=== PATIENT | male | born 1980 | race Caucasian/White ===

== ENCOUNTER 2022-08-22 13:41 | Emergency (ER) | payer OTHER ==
[~2022-08-22] VITALS: Ht 172.7 cm; Wt 61.2 kg
[2022-08-22 14:27] VITALS: BP_SYST 166
[2022-08-22] MEDS ORDERED: MORPHINE 4 MG INJ. 4 MG/ML VIAL IM ONE (16:45)
[2022-08-22] MEDS ORDERED: IBUPROFEN 800 MG TABLET PO ONE (16:45)
[2022-08-22] MEDS ORDERED: ONDANSETRON 4 MG ODT TAB PO ONE (16:45)
[2022-08-22] MEDS ORDERED: IBUP-1971 PO (17:37)
[2022-08-22 19:20] VITALS: BP_SYST 148
== END 2022-08-22 19:20 | disposition home or self-care (01) ==
LOC: SED 13:41
DX: S92.012A Displaced fracture of body of left calcaneus, initial encounter for closed fracture (principal); Z88.1 Allergy status to other antibiotic agents; Z79.899 Other long term (current) drug therapy; Y30.XXXA Falling, jumping or pushed from a high place, undetermined intent, initial encounter; Y93.89 Activity, other specified; Y92.89 Other specified places as the place of occurrence of the external cause; Y99.8 Other external cause status
CPT/HCPCS: 99284; 29515; 73610; 73630; J2270; Q0162